=== PATIENT | male | born 1990 | race Caucasian/White ===

== ENCOUNTER 2019-07-15 16:44 | Emergency (ER) | payer MEDICAID ==
[~2019-07-15] VITALS: Ht 180.3 cm; Wt 68.2 kg
[~2019-07-15 16:44] MED LIST: BACTDS PO; CEPH-443 PO; NEOM28.33 TOP; SULF1TAB31 PO
[2019-07-15 16:48] VITALS: Ht 180.3 cm; Wt 68.2 kg
[2019-07-15] MEDS ORDERED: LORAZEPAM 2 MG INJ IV STA (16:49)
[2019-07-15] MEDS ORDERED: SOD CHLORIDE 0.9% 1,000 ML IV STA ×2 (16:49→17:55)
[2019-07-15] MEDS ORDERED: HALOPERIDOL 5 MG INJ IV ONE (17:00)
[2019-07-16 08:58] VITALS: BP 120/65; PULSE 61; RESP 18
== END 2019-07-16 09:38 | disposition short-term general hospital (02) ==
LOC: E/R 16:44
DX: S00.81XA Abrasion of other part of head, initial encounter (principal); F10.920 Alcohol use, unspecified with intoxication, uncomplicated; R40.2142 Coma scale, eyes open, spontaneous, at arrival to emergency department; R40.2252 Coma scale, best verbal response, oriented, at arrival to emergency department; R40.2362 Coma scale, best motor response, obeys commands, at arrival to emergency department; F15.159 Other stimulant abuse with stimulant-induced psychotic disorder, unspecified; F32.9 Major depressive disorder, single episode, unspecified; W26.0XXA Contact with knife, initial encounter; Y92.9 Unspecified place or not applicable
CPT/HCPCS: 36415; 70450; 80053; 80307; 85025; 93005; 96374; 96375; J1630; J2060; J7030; Z7502